=== PATIENT | male | born 1980 | race Hispanic/Latino ===

== ENCOUNTER 2021-05-21 01:25 | Emergency (ER) | payer OTHER ==
[~2021-05-21] VITALS: Ht 188 cm; Wt 112.5 kg
[2021-05-21 01:43] VITALS: BP 132/74
== END 2021-05-21 01:49 | disposition left against medical advice (07) ==
LOC: EDH 01:25
DX: R21 Rash and other nonspecific skin eruption (principal); Z53.21 Procedure and treatment not carried out due to patient leaving prior to being seen by health care provider